=== PATIENT | male | born 1995 | race Hispanic/Latino ===

== ENCOUNTER 2016-08-19 08:58 | Emergency (ER) | payer OTHER ==
[2016-08-19 09:06] VITALS: BP 132/90
--- NOTE | 2016-08-19 09:29 | Emergency Department Report ---
ED ENT HPI - General Chief complaint: Sore Throat Stated complaint: BACK AND THROAT Time Seen by Provider: 08/19/16 09:28 Source: patient Mode of arrival: Ambulatory Limitations: No Limitations - Related Data Previous Rx's Medication Instructions Recorded Last Taken Type Omeprazole Magnesium [Prilosec Otc] 20 mg PO QDAY #14 tablet. 07/06/14 Unknown Rx Amoxicillin [Amoxicillin TAB] 875 mg PO BID #20 tablet 08/19/16 Unknown Rx Cyclobenzaprine [Flexeril] 10 mg PO TID PRN #20 tablet 08/19/16 Unknown Rx Ibuprofen [Motrin] 800 mg PO Q8HR PRN #20 tablet 08/19/16 Unknown Rx Allergies Allergy/AdvReac Type Severity Reaction Status Date / Time nuts Allergy Itching Uncoded 07/06/14 07:10 ED Dental HPI - General Chief complaint: Sore Throat Stated complaint: BACK AND THROAT Time Seen by Provider: 08/19/16 09:28 Source: patient Mode of arrival: Ambulatory Limitations: No Limitations - History of Present Illness MD complaint: sore throat Severity: mild Worsens with: chewing, hot/cold liquids Context- Dental: history of dental caries, poor dental care Dental Associated Symptons: Yes: Headache - Related Data Previous Rx's Medication Instructions Recorded Last Taken Type Omeprazole Magnesium [Prilosec Otc] 20 mg PO QDAY #14 tablet. 07/06/14 Unknown Rx Amoxicillin [Amoxicillin TAB] 875 mg PO BID #20 tablet 08/19/16 Unknown Rx Cyclobenzaprine [Flexeril] 10 mg PO TID PRN #20 tablet 08/19/16 Unknown Rx Ibuprofen [Motrin] 800 mg PO Q8HR PRN #20 tablet 08/19/16 Unknown Rx Allergies Allergy/AdvReac Type Severity Reaction Status Date / Time nuts Allergy Itching Uncoded 07/06/14 07:10 ED Review of Systems ROS: Stated complaint: BACK AND THROAT Other details as noted in HPI Constitutional: denies: chills, fever Eyes: denies: eye pain, eye discharge, vision change ENT: throat pain. denies: ear pain Respiratory: denies: cough, shortness of breath, wheezing Cardiovascular: denies: chest pain, palpitations Endocrine: no symptoms reported Gastrointestinal: denies: abdominal pain, nausea, diarrhea Genitourinary: denies: urgency, dysuria Musculoskeletal: denies: back pain, joint swelling, arthralgia Skin: denies: rash, lesions Neurological: denies: headache, weakness, paresthesias Psychiatric: denies: anxiety, depression Hematological/Lymphatic: denies: easy bleeding, easy bruising ED Past Medical Hx - Past Medical History Previous Medical History?: No Hx Hypertension: No Additional medical history: Right wrist dislocation - Surgical History Past Surgical History?: Yes Additional Surgical History: right wrist - Social History Smoking Status: Never Smoker Substance Use Type: None - Medications Home Medications: Home Medications Medication Instructions Recorded Confirmed Last Taken Type Omeprazole Magnesium [Prilosec Otc] 20 mg PO QDAY #14 tablet.dr 07/06/14 Unknown Rx Amoxicillin [Amoxicillin TAB] 875 mg PO BID #20 tablet 08/19/16 Unknown Rx Cyclobenzaprine [Flexeril] 10 mg PO TID PRN #20 tablet 08/19/16 Unknown Rx Ibuprofen [Motrin] 800 mg PO Q8HR PRN #20 tablet 08/19/16 Unknown Rx ED Physical Exam - General Limitations: No Limitations General appearance: alert, in no apparent distress - Head Head exam: Present: atraumatic, normocephalic - Eye Eye exam: Present: normal appearance - ENT ENT exam: Present: mucous membranes moist, other (bilat tonsillitis) - Neck Neck exam: Present: normal inspection, lymphadenopathy. Absent: tenderness, meningismus - Respiratory Respiratory exam: Present: normal lung sounds bilaterally. Absent: respiratory distress, wheezes, rales, rhonchi, stridor - Cardiovascular Cardiovascular Exam: Present: regular rate, normal rhythm. Absent: systolic murmur, diastolic murmur, rubs, gallop - GI/Abdominal GI/Abdominal exam: Present: soft, normal bowel sounds - Rectal Rectal exam: Present: deferred - Extremities Exam Extremities exam: Present: normal inspection - Back Exam Back exam: Present: normal inspection - Neurological Exam Neurological exam: Present: alert, oriented X3 - Psychiatric Psychiatric exam: Present: normal affect, normal mood - Skin Skin exam: Present: warm, dry, intact, normal color. Absent: rash ED Course Vital Signs 08/19/16 09:04 Temperature 98 F Pulse Rate 70 Respiratory 16 Rate Blood Pressure 132/90 O2 Sat by Pulse 100 Oximetry Critical care attestation.: If time is entered above; I have spent that time in minutes in the direct care of this critically ill patient, excluding procedure time. ED Disposition Clinical Impression: Acute tonsillitis, Chronic back pain greater than 3 months duration Disposition: DISCHARGED TO HOME OR SELFCARE Is pt being admited?: No Condition: Stable Instructions: Tonsillitis (ED), Chronic Back Pain (ED) Prescriptions: Amoxicillin [Amoxicillin TAB] 875 mg PO BID #20 tablet Cyclobenzaprine [Flexeril] 10 mg PO TID PRN #20 tablet PRN Reason: Muscle Spasm Ibuprofen [Motrin] 800 mg PO Q8HR PRN #20 tablet PRN Reason: Pain Referrals: PRIMARY CARE, [Primary Care Provider] - 3-5 Days RUBIO RIGGS MD [Staff Physician] - 3-5 Days Forms: Work/School Release Form(ED)
== END 2016-08-19 09:58 | disposition home or self-care (01) ==
LOC: ED 08:58
DX: J03.90 Acute tonsillitis, unspecified (principal); M54.9 Dorsalgia, unspecified; R51 Headache; G89.29 Other chronic pain; Z91.018 Allergy to other foods
CPT/HCPCS: 99282

== ENCOUNTER 2016-09-22 09:09 | Emergency (ER) | payer SELFPAY ==
[2016-09-22 09:44] VITALS: BP 142/78
--- NOTE | 2016-09-22 11:57 | Emergency Department Report ---
HPI - General Chief Complaint: Pain General Time Seen by Provider: 09/22/16 11:41 - HPI HPI: Patient is a 21-year-old male who presents to ED complaining of generalized pain 3 days. [place]. Patient states pain has been worse over the last couple of days. Patient describes pain soreness throbbing in nature. She rates pain about a 5 out of 10 intensity. he states that he has no other medical conditions. Patient denies fever/chills/nausea/vomiting/abdominal pain/chest pain or shortness of breath/dyspnea/headache problems. ED Past Medical Hx - Past Medical History Previous Medical History?: No Hx Hypertension: No Additional medical history: Right wrist dislocation - Surgical History Past Surgical History?: Yes Additional Surgical History: right wrist - Social History Smoking Status: Never Smoker Substance Use Type: Alcohol - Medications Home Medications: Home Medications Medication Instructions Recorded Confirmed Last Taken Type Omeprazole Magnesium [Prilosec Otc] 20 mg PO QDAY #14 tablet. 07/06/14 Unknown Rx Amoxicillin [Amoxicillin TAB] 875 mg PO BID #20 tablet 08/19/16 Unknown Rx Cyclobenzaprine [Flexeril 10 MG 10 mg PO TID PRN #20 tablet 09/22/16 Unknown Rx TAB] Ibuprofen [Motrin 800 MG tab] 800 mg PO Q8HR PRN #30 tablet 09/22/16 Unknown Rx ED Review of Systems ROS: Stated complaint: BODY PAIN Other details as noted in HPI Constitutional: denies: chills, fever Eyes: denies: eye pain, eye discharge, vision change ENT: denies: ear pain, throat pain, hearing loss, congestion Respiratory: denies: cough, shortness of breath, wheezing Cardiovascular: denies: chest pain, palpitations Endocrine: no symptoms reported Gastrointestinal: denies: abdominal pain, nausea, diarrhea, constipation, hematemesis Genitourinary: denies: urgency, dysuria Musculoskeletal: myalgia. denies: back pain, joint swelling, arthralgia Skin: denies: rash, lesions Neurological: denies: headache, weakness, numbness, paresthesias, confusion, abnormal gait Psychiatric: denies: anxiety, depression Hematological/Lymphatic: denies: easy bleeding, easy bruising, swollen glands Physical Exam - Physical Exam Vital Signs: Vital Signs 09/22/16 09:41 Temperature 98 F Pulse Rate 72 Respiratory 20 Rate Blood Pressure 142/78 O2 Sat by Pulse 100 Oximetry Physical Exam: GENERAL: Alert and oriented x3, no apparent distress, Normal Gait, atraumatic. HEAD: Head is normocephalic and a-traumatic. EYES: Extra ocular muscles are intact. Pupils are equal, round, and reactive to light and accommodation. EARS: symetrical, atraumatic, gross auditory nml bilaterally. NOSE: Nose symetrical, Nontender,Nares appeared normal. MOUTH:Mouth is well hydrated and without lesions. Patent airways. NECK: Supple. Non edematous, No carotid bruits. No lymphadenopathy or thyromegaly. LUNGS: Symetrical with respiration, No wheezing, no rales or crackles, CTAB. HEART: S1, S2 present, regular rate and rhythm without murmur, no rubs, no gallops. Mild tenderness to palpation upper chest muscles and forearm muscles i.e. triceps and biceps. ABDOMEN: No organomegaly was noted,Positive bowel sounds, soft, and non- distended. . Nontender to palpation on all Quadrants, NO CVA tenderness. EXTREMITIES/MUSCULOSKELETAL: No cyanosis, clubbing, rash, lesions or edema. Full ROM bilaterally. UE Pulses 2+ bilaterally. UE 5+ strength bilaterally. Full range of motion in arms and back PSYCHIATRIC: Mood is congruent with affect, denies suicidal or homicidal ideations. SKIN: Warm and dry, No lesions, No ulceration or induration present. ED Course Vital Signs 09/22/16 09:41 Temperature 98 F Pulse Rate 72 Respiratory 20 Rate Blood Pressure 142/78 O2 Sat by Pulse 100 Oximetry ED Medical Decision Making - Medical Decision Making 21-year-old female presents with muscle strain due to overuse. ED course: Discussed with patient proper lifting techniques. Discussed the patient to heat application to muscle aches 3 Times a day. Discussed anti-inflammatory and Rest. Discussed to follow up with primary care physician. Vital signs stable. Patient is in no acute arrest or distress. Discussed the patient is symptoms worsen to return to ED otherwise follow-up with primary care physician. Patient verbally states he understands and will comply to follow-up Critical care attestation.: If time is entered above; I have spent that time in minutes in the direct care of this critically ill patient, excluding procedure time. ED Disposition Clinical Impression: Myalgia, Muscle strain Disposition: DISCHARGED TO HOME OR SELFCARE Is pt being admited?: No Does the pt Need Aspirin: No Condition: Stable Instructions: Muscle Strain (ED), Trigger Point Pain (ED), Musculoskeletal Pain (ED), Heat Pack Application (ED) Prescriptions: Cyclobenzaprine [Flexeril 10 MG TAB] 10 mg PO TID PRN #20 tablet PRN Reason: Muscle Spasm Ibuprofen [Motrin 800 MG tab] 800 mg PO Q8HR PRN #30 tablet PRN Reason: Pain Referrals: PRIMARY CARE, [Primary Care Provider] - 3-5 Days EDMUNDO CARNEY MD [Referring] - 3-5 Days STEVAN BERRIOS MD [Referring] - 3-5 Days [facility] [Outside[facility] - 3-5 Days [facility] [Outside] - 3-5 Days Forms: Work/School Release Form(ED) Time of Disposition: 12:29
== END 2016-09-22 12:40 | disposition home or self-care (01) ==
LOC: ED 09:09
DX: T14.8 Other injury of unspecified body region (principal); M79.1 Myalgia; X58.XXXA Exposure to other specified factors, initial encounter; Y93.9 Activity, unspecified; Y92.89 Other specified places as the place of occurrence of the external cause; Y99.9 Unspecified external cause status
CPT/HCPCS: 99282